=== PATIENT | male | born 1970 | race Caucasian/White ===

== ENCOUNTER 2017-05-02 11:41 | Inpatient (IN) | payer OTHER ==
[2017-05-02 12:12] LABS: BILIRUBIN,URINE NEGATIVE (NEG); CLARITY,URINE CLEAR; COLOR,URINE YELLOW; GLUCOSE,URINE NEGATIVE (NEG); NITRITE,URINE NEGATIVE (NEG); PH,URINE 5.5; PROTEIN,URINE NEGATIVE (NEG-TRACE); UROBILINOGEN,URINE 0.2 mg/dL (0.2 mg/dL)
[2017-05-02 12:19] LABS: WBC,URINE 0 /HPF (0-4)
[2017-05-02 12:20] LABS: BACTERIA,URINE 0 /HPF (0-FEW)
[2017-05-02] MEDS: ONDANSETRON PF 4 MG/2 ML VIAL. IV (12:30)
[2017-05-02] MEDS: KETOROLAC 30 MG/ML INJ. IV (12:31)
[2017-05-02] MEDS: IV NORMAL SALINE 1000ML BAG 1,000 ML IV ×2 (12:31→14:22)
[2017-05-02 12:35] LABS: ADD MAN DIFF? NO
[2017-05-02 12:45] LABS: BASO % 1 % (0-3); EOS # 0.1 x10^3/uL (0.0-0.7); EOS % 2 % (0-3); HEMATOCRIT 45.2 % (39.0-53.0); HEMOGLOBIN 15.5 g/dL (13.0-17.5); LYMPH # 2.4 x10^3/uL (1.0-4.8); LYMPH % 27 % (24-48); MEAN CORPUSCULAR HEMOGLOBIN 31 pg (25-35); MEAN CORPUSCULAR HGB CONC 34 g/dL (31-37); MEAN CORPUSCULAR VOLUME 91 fL (79-100); MONO # 0.9 x10^3/uL (0.0-1.1); MONO % 10 % (0-9); NEUT # 5.3 x10^3uL (1.8-7.7); NEUT % 61 % (31-73); PLATELET COUNT 202 x10^3/uL (140-400); RED BLOOD COUNT 4.99 x10^6/uL (4.30-5.70); RED CELL DISTRIBUTION WIDTH 12.6 % (11.5-14.5); WHITE BLOOD COUNT 8.8 x10^3/uL (4.0-11.0)
[2017-05-02 13:01] LABS: ANION GAP 12 (6-14); BLOOD UREA NITROGEN 20 mg/dL (8-26); BUN/CREATININE RATIO 17 (6-20); CARBON DIOXIDE 26 mmol/L (21-32); CHLORIDE 105 mmol/L (98-107); CREATININE 1.2 mg/dL (0.7-1.3); GFR 65.2; GLUCOSE 136 mg/dL (70-99); POTASSIUM 4.5 mmol/L (3.5-5.1); SODIUM 143 mmol/L (136-145)
[2017-05-02 13:10] LABS: ALBUMIN 3.8 g/dL (3.4-5.0); ALBUMIN/GLOBULIN RATIO 1.4 (1.0-1.7); ALK PHOS 63 U/L (46-116); ALT (SGPT) 26 U/L (16-63); AST (SGOT) 19 U/L (15-37); LIPASE 151 U/L (73-393); TOTAL BILIRUBIN 0.2 mg/dL (0.2-1.0); TOTAL PROTEIN 6.6 g/dL (6.4-8.2)
[2017-05-02] MEDS ORDERED: fentaNYL PF VIAL 100 MCG/2 ML VIAL IV (14:30)
[2017-05-02] MEDS: fentaNYL PF VIAL 100 MCG/2 ML VIAL IV ×4 (14:34→22:38)
[2017-05-02] MEDS: ENOXAPARIN 40 MG/0.4 ML SYRINGE. SQ (18:30)
[2017-05-02] MEDS: hydrALAZINE 20 MG/ML VIAL. IVP (22:37)
[2017-05-02] MEDS: HYDROmorphone 2 MG/ML VIAL IV (23:44)
[2017-05-03] MEDS: ONDANSETRON PF 4 MG/2 ML VIAL. IV ×2 (01:41→15:15)
[2017-05-03] MEDS: HYDROmorphone 2 MG/ML VIAL IV ×5 (01:42→12:12)
[2017-05-03] MEDS: IV NORMAL SALINE 1000ML BAG 1,000 ML IV (01:43)
[2017-05-03] MEDS: LEVOTHYROXINE 100 MCG TABLET PO (06:21)
[2017-05-03] MEDS: FLU VACC QS2017-18 (36MOS+)/PF 0.5 ML SYRINGE. VAX IM (09:00)
[2017-05-03] MEDS: ALPRAZolam 1 MG TABLET PO ×2 (09:00→09:15)
[2017-05-03] MEDS: PROPRANOLOL ER 60 MG CAP.SA.24H. PO (09:11)
[2017-05-03] MEDS: ENOXAPARIN 40 MG/0.4 ML SYRINGE. SQ (09:47)
[2017-05-03] MEDS: ACETAMINOPHEN 325 MG TABLET. PO (12:12)
[2017-05-03] MEDS: cefTRIAXone IV Push 1 GM VIAL. IVP (12:12)
[2017-05-03] MEDS: oxyCODONE/APAP 10/325 1 TAB TABLET PO ×2 (13:28→17:07)
[2017-05-03] MEDS ORDERED: TAMSULOSIN 0.4 MG CAP.ER.24H. PO (21:00)
== END 2017-05-03 17:21 | disposition home or self-care (01) | DRG 694 ==
LOC: ER 11:41 → 5 NORTH 14:17
DX: N13.2 Hydronephrosis with renal and ureteral calculous obstruction (principal); E03.9 Hypothyroidism, unspecified; G89.29 Other chronic pain; I10 Essential (primary) hypertension; M10.9 Gout, unspecified; Z87.442 Personal history of urinary calculi
CPT/HCPCS: 36415; 74018; 74176; 80053; 81001; 83690; 85025; 96361; 96374; 96375; 99285; 99285-25; J0360; J0696; J1170; J1885; J2405; J3010; J7030